=== PATIENT | female | born 1955 | race Hispanic/Latino ===

== ENCOUNTER → 2020-07-07 | Outpatient (CLI) | payer OTHER | LOC: MRI 14:59 | PROVIDERS: ATTEND Specialist | DX: M23.91 Unspecified internal derangement of right knee (principal) ==

== ENCOUNTER → 2023-09-16 | Outpatient (REF) | payer MEDICARE | LOC: RAD 16:08 | PROVIDERS: ATTEND Internal Medicine | DX: M19.041 Primary osteoarthritis, right hand (principal) ==

== ENCOUNTER → 2024-09-07 | Outpatient (REF) | payer MEDICARE | LOC: RAD 13:47 | PROVIDERS: ATTEND Internal Medicine | DX: Z13.828 Encounter for screening for other musculoskeletal disorder (principal) ==